=== PATIENT | male | born 1990 | race Two or more races ===

== ENCOUNTER 2021-04-03 06:15 | Inpatient (IN) | payer SELFPAY ==
[~2021-04-03] VITALS: Ht 177.8 cm; Wt 112.0 kg
[2021-04-03] VITALS (12 sets, daily range): BP systolic 78–134; BP diastolic 17–99
[2021-04-03] MEDS ORDERED: CEFTRIAXONE 1GM BAG (ER ONLY) 50 ML IV ONE ×2 (06:25→06:30)
[2021-04-03] MEDS ORDERED: AZITHROMYCIN 500 MG VIAL ONE (06:26)
[2021-04-03] MEDS ORDERED: DEXAMETHASONE SOD PHOSPHATE 10 MG/ML VIAL ONE (06:26)
[2021-04-03] MEDS ORDERED: IV NS 0.9% 500 ML IV ONE (06:30)
[2021-04-03] MEDS ORDERED: AZITHROMYCIN 500 MG in IV D5W 250 ML IV ONE (06:30)
[2021-04-03] MEDS ORDERED: DEXAMETHASONE SOD PHOSPHATE 10 MG/ML VIAL IV ONE (06:30)
--- NOTE | 2021-04-03 06:30 | NUR ---
PATIENT BIBEMS FROM HOME C/O ABDOMINAL PAIN AND BLOATING FOR THE PAST 2-3DAYS. PATIENT DENIES N/V. PATIENT O2 SAT LESS THAN 50%, O2 SAT 65% ON 15L/NRB PER EMS REPORT.
[2021-04-03 06:46] LABS: BASOPHILS % (AUTO) 0.1 % (0.0-2.0); HEMATOCRIT 39 % (39-51); HEMOGLOBIN 12.3 g/dL (13.5-17.5); LYMPHOCYTES # (AUTO) 4.3 K/uL (0.8-4.8); LYMPHOCYTES % (AUTO) 15.2 % (20.0-44.0); MEAN CORPUSCULAR HGB CONC 31 g/dl (31.0-36.0); MEAN CORPUSCULAR VOLUME 86 fL (80-96); MONOCYTES # (AUTO) 3.9 K/uL (0.1-1.30); MONOCYTES % (AUTO) 13.7 % (2.0-12.0); NEUTROPHILS # (AUTO) 20.3 K/uL (1.8-8.9); PLATELET COUNT (AUTO) 258 K/uL (150-450); RED BLOOD CELL COUNT(AUTO) 4.56 MIL/uL (4.5-6.0); WHITE BLOOD COUNT (AUTO) 28.6 K/uL (4.3-11.0)
--- NOTE | 2021-04-03 06:49 | NUR ---
PATIENT PLACED ON HIFLOW 40L, NRM, O2 STAT AT 90-91%
[2021-04-03 07:09] LABS: D-DIMER 16.74 mg/L(FEU (0.17-0.50)
[2021-04-03 07:16] LABS: CALCIUM, SERUM 8.2 mg/dL (8.5-10.1); CARBON DIOXIDE 14 mmol/L (21-32); CHLORIDE 96 mmol/L (98-107); CREATINE KINASE, TOTAL 159 U/L (39-308); CREATININE 2.2 mg/dL (0.6-1.3); FERRITIN 625 ng/mL (8-388); GLUCOSE 284 mg/dL (74-106); SODIUM SERUM 139 mmol/L (136-145); UREA NITROGEN, BLOOD 25 mg/dL (7-18)
[2021-04-03 07:22] LABS: POTASSIUM 2.5 mmol/L (3.5-5.1)
--- NOTE | 2021-04-03 07:22 | NUR ---
K 2.5
--- NOTE | 2021-04-03 07:23 | NUR ---
MOVE SHEET SUBMITTED, CALLED FOR ICU BED.
[2021-04-03 07:29] LABS: ALANINE AMINOTRANSFERASE 85 U/L (12-78); ALKALINE PHOSPHATASE 89 U/L (46-116); ASPARTATE AMINOTRANSFERASE 60 U/L (15-37); BILIRUBIN,TOTAL 0.4 mg/dL (0.2-1.0)
[2021-04-03] MEDS ORDERED: ENOXAPARIN SODIUM 100 MG/ML DISP.SYRIN SQ ONE ×2 (07:30→09:30)
[2021-04-03 07:41] LABS: C-REACTIVE PROTEIN 14.4 mg/dL (0.0-0.9)
--- NOTE | 2021-04-03 08:02 | NUR ---
THE PATIENT IS RECEIVED IN BED. ALERT AND ORIENETED X4. DENIES PAIN. THE PATIENT IS ON 15 L/MIN NON-REBREATHER MASK AND HIGH FLOW OXYGEN 40L/MIN 100%. THE SATURATION LEVEL IS AT 91%. WILL CONTINUE TO MONITOR THE PATIENT.
--- NOTE | 2021-04-03 08:03 | NUR ---
THE PATIENT IN PRONING POSITION. DENIES PAIN. WILL CONTINUE TO MONITOR THE PATIENT
--- NOTE | 2021-04-03 08:18 | NUR ---
GOT BED 262
[2021-04-03 08:53] LABS: ABG BASE EXCESS -6.5 mmol/L; ABG OXYGEN SATURATION 81.6 % (92.0-98.5); COHb 0.3 % (0.5-1.5); MetHb 0.3 % (0.0-1.5); O2Hb 81.1 % (94.0-97.0); SITE, ABG Right Radial; VENT MODE, BG HIGH FLOW 40L 100%
--- NOTE | 2021-04-03 09:31 | NUR ---
[facility] CALLED SALES PROMOTION OFFICER PAGED.
--- NOTE | 2021-04-03 10:10 | NUR ---
REPORT GIVEN TO NURSE ELISE FROM ICU.
[2021-04-03] MEDS ORDERED: ONDANSETRON 4 MG TAB.RAPDIS SL PRN (10:30)
[2021-04-03] MEDS ORDERED: ASPIRIN 300 MG/SUPP.RECT RC ONE (10:30)
[2021-04-03] MEDS ORDERED: ALBUTEROL SULFATE 8 GM HFA.AER.AD IH PRN (10:30)
[2021-04-03] MEDS ORDERED: ACETAMINOPHEN 650 MG/SUPP.RECT RC PRN (10:30)
[2021-04-03] MEDS ORDERED: ONDANSETRON HCL/PF 4 MG/2 ML VIAL IVP PRN (10:30)
[2021-04-03] MEDS ORDERED: IV NS 0.9% 1,000 ML BAG IV ONE (10:30)
--- NOTE | 2021-04-03 10:40 | NUR ---
SENIOR ACCOUNTANT CPA Telephone report taken from ER nurse Donna VILLATORO. Pt arrived to ICU via gurney. pt awake, alert and oriented x3, anxious, follows commands, able to move from gurney to bed independently. pt on 15L nonrebreather and High flow n/c 40 L with fio2 100%, spo2 89%. pt has sever sob with activity and during resting period. junior lung sounds diminished. bowel sounds present. pt continent of stool and urine. skin intact. bue and ble pedal pulses present. pt tachycardic hr 120s, tachypnic rr 30-40s and spo2 86- 91%, charge nurse zuri RN aware. RT at bedside. will continue to monitor.
--- NOTE | 2021-04-03 10:44 | NUR ---
MORIAH ORO MADE AWARE OF POTASSIUM 2.5. RECEIVED AN ORDER OF POTASSIUM CHLORIDE 40 MEQ IV. THE ORDER IS READ BACK, VERIFIED. NOTED AND CARRIED OUT.
--- NOTE | 2021-04-03 10:46 | NUR ---
THE PATIENT IS TRANSFERED TO ROOM 262 PER [facility] POLICY.
[2021-04-03] MEDS ORDERED: POTASSIUM CHLORIDE 10 MEQ/50 ML PREMIXED IVPB FOR PERIPHERAL LINE IV ONE (11:00)
--- NOTE | 2021-04-03 11:12 | NUR ---
MACHINE FILLER SHREDDER Dr Diallo at bedside assessing pt and updated on pt status. md aware that pt spo2 86-91% on high flow n/c 40L fio2 100% and nonrebreather 15L, per md pt improving from assessment down in ER. new orders pending for covid medication. no intubation at this time. will continue to monitor. charge nurse Kareen VILLATORO aware.
[2021-04-03] MEDS ORDERED: TOCILIZUMAB 400 MG in IV NS 0.9% 80 ML IV ONE (11:30)
[2021-04-03] MEDS ORDERED: IV D5/ 0.9% NACL 1,000 ML IV PRN (11:30)
[2021-04-03] MEDS: POTASSIUM CL. PREMIX PERIPHER. 50 ML IV SCH ×4 (11:34→15:17)
[2021-04-03] MEDS ORDERED: ASPIRIN 325 MG TABLET PO ONE (12:00)
[2021-04-03 12:05] LABS: BILIRUBIN,DIRECT 0.6 mg/dL (0.0-0.2)
--- NOTE | 2021-04-03 12:20 | NUR ---
IRVING Basurto SCRUM PRODUCT OWNER at bedside assessing pt and updated on pt status. associate director financial aid aware that pt has right chest tube placed in am, levophed off at 10 am and that pt has bp med in am that were held d/t pt on levophed and hypotension, associate director financial aid to review pt med list and make changes. no orders at this time. will continue to monitor. Addendum: 04/03/21 at 1308 by [facility] TEJA VILLATORO IRVING Basurto SCRUM PRODUCT OWNER at bedside assessing pt and updated on pt status. SCRUM PRODUCT OWNER aware that pt lactic 8.0. no new orders at this time. will continue to monitor. Addendum: 04/03/21 at 1347 by [facility] TEJA VILLATORO 1st note documented on wrong pt. disregard 1st note .
[2021-04-03 13:15] LABS: C-REACTIVE PROTEIN 20.6 mg/dL (0.0-0.9)
[2021-04-03 13:23] LABS: ABG OXYGEN SATURATION 89.2 % (92.0-98.5); ABG PCO2 23.2 mmHg (35.0-45.0); ABG PH 7.365 (7.350-7.450); ABG PO2 61.9 mmHg (75.0-100.0); AaDO2 627.9 mmHg; COHb 0.4 % (0.5-1.5); MetHb 0.2 % (0.0-1.5); O2Hb 88.7 % (94.0-97.0); SITE, ABG Right Radial; VENT MODE, BG HFNC 40LPM 100%+NRB
--- NOTE | 2021-04-03 13:44 | NUR ---
EXECUTIVE DIRECTOR Lab called for second time to draw labs ordered by pharmacy to dose medication. awaiting slab puller for blood draw. charge nurse aware.
[2021-04-03] MEDS ORDERED: TOCILIZUMAB 800 MG in IV NS 0.9% 80 ML IV ONE (14:00)
--- NOTE | 2021-04-03 14:30 | NUR ---
SWIMMING POOL MAINTENANCE Dr garcia aware that pt tachypnic and anxious. light dose of antianxiety med suggested to md to help calm pt down, not at this time per md for concerns that it will depress respiratory status. suggested intubation d/t pt excessive work of breathing, no intubation at this time and no new orders at this time per md. will continue to monitor. charge nurse Kareen VILLATORO aware.
[2021-04-03] MEDS ORDERED: TOCILIZUMAB 800 MG in IV NS 0.9% 60 ML IV ONE (14:37)
--- NOTE | 2021-04-03 16:05 | NUR ---
PLATFORM MILL SUPERVISOR Pt had BM x1 small liquid. pt bathed and cleaned. linen change done. skin check done, no wounds noted. pt desaturated when turning. pt anxious, and tachypnic, hob raised, coached pt on breathing slowly and through the nose, pt followed instructions, spo2 increased to 88%, RT at bedside . vitals stable. will continue to monitor.
--- NOTE | 2021-04-03 16:15 | NUR ---
CELL TUBER MACHINE Urine sample collected from pt, lab called for pickup, was instructed to place specimen in fridge for pickup. pickup pending.
[2021-04-03] MEDS ORDERED: DEXAMETHASONE SOD PHOSPHATE 10 MG/ML VIAL IV SCH (17:00)
[2021-04-03] MEDS ORDERED: DEXAMETHASONE SOD PHOSPHATE 6 MG in IV D5W 50 ML IV SCH (17:00)
[2021-04-03] MEDS ORDERED: INSULIN REGULAR, HUMAN 100 UNIT/ML 3 ML VIAL SQ PRN (19:00)
[2021-04-03] MEDS ORDERED: DEXTROSE 50%-WATER 50 ML DISP.SYRIN IV PRN (19:00)
--- NOTE | 2021-04-03 19:08 | NUR ---
HEALTH RECORDS TECHNOLOGY TEACHER bedside report given to [facility] nurse Márquez RN, pt awake, restless, anxious, tachypnic and tachycardic. pt on high flow 40 L fio2 100% and nonrebreather 15 L. all lines traced. all drips verified. safety measures in place.
--- NOTE | 2021-04-03 20:00 | NUR ---
school curriculum developer. before my assessment. pt coded.
[2021-04-03] MEDS ORDERED: EPINEPHRINE (1:10,000) SYRINGE 1 MG/10 ML DISP.SYRIN IVP ONE (20:39)
[2021-04-03] MEDS ORDERED: DEXTROSE 50%-WATER 50 ML DISP.SYRIN IV ONE (20:39)
[2021-04-03] MEDS ORDERED: SODIUM BICARBONATE SYR 50 MEQ/50 ML DISP.SYRIN IV ONE (20:39)
[2021-04-03] MEDS ORDERED: Magnesium 1 GM/2 ML VIAL IV ONE (20:39)
--- NOTE | 2021-04-03 22:59 | NUR ---
HEAD CAGER. RECEIVED THE PT FROM DAY SHIFT RN DAMON .AROUND 191, PT IS VERY TACHYPNEIC, AND TACHYCARDIA NOTED. PT IS ON OXYGEN HIGH FLOW AND NON REBREATHER. AROUND 1934I CHECKED THE PT MONITOR SHOWING MJ FOLLOWED BY PEA. ACTIVATED CODE BLUE, IV EPI GIVEN , ER CAME AND INTUBATED THE PT. SEE CODE BLUE SHEET. PRONOUNCED BY ER MD Hemanth MEAD. AT 2003. NOTIFIED [employer], SPOKE WITH HYUN, CASE #[id number]. PT IS NOT CANDIDATE FOR ORGAN DONATION.. NOTIFIED CORNER. SPOKE WITH LEVAR. PT IS NOT CORNER CASE. NOTIFIED FAMILY GIRL FRIEND , AND ADMITTING. POST MORTEM CARE GIVEN.AND SEND THE BODY TO [facility].
[2021-04-04] MEDS ORDERED: BLOOD SUGAR DIAGNOSTIC 1 EACH STRIP IN SCH
[2021-04-04] MEDS ORDERED: AZITHROMYCIN 250 MG in IV D5W 250 ML IV SCH (06:00)
[2021-04-04] MEDS ORDERED: CEFTRIAXONE 1 G in IV D5W 50 ML IV SCH (07:00)
[2021-04-04] MEDS ORDERED: APIXABAN 2.5 MG TABLET PO SCH (08:00)
[2021-04-04] MEDS ORDERED: ASPIRIN 81 MG TAB.CHEW PO SCH (09:00)
[2021-04-04] MEDS ORDERED: ENOXAPARIN SODIUM 40 MG/0.4 ML DISP.SYRIN SQ SCH ×2 (09:00)
[2021-04-04 13:33] LABS: BILIRUBIN,URINE NEGATIVE (NEGATIVE); COLOR,URINE YELLOW (YELLOW); LEUKOCYTE ESTERASE ,URINE NEGATIVE (NEGATIVE); NITRITE, URINE NEGATIVE (NEGATIVE); PROTEIN,URINE 30 mg/dl (NEGATIVE); UGLUCOSE NEGATIVE (NEGATIVE)
[2021-04-04 13:39] LABS: BACTERIA,URINE Rare /HPF (None Seen); SQUAMOUS EPITHELIAL CELL,UR Few /HPF (None Seen); WBC,URINE 0-2 /HPF (0-3)
== END 2021-04-03 20:04 | DRG 177 ==
LOC: ER 06:21 → ICU 10:50
PROVIDERS: ADMIT Registered Nurse; ATTEND Registered Nurse
PROC: XW033H5 Introduction of Tocilizumab into Peripheral Vein, Percutaneous Approach, New Technology Group 5 (ICD-10-PCS; principal; 2021-04-03)
PROC: 0BH17EZ Insertion of Endotracheal Airway into Trachea, Via Natural or Artificial Opening (ICD-10-PCS; 2021-04-03)
PROC: 5A2204Z Restoration of Cardiac Rhythm, Single (ICD-10-PCS; 2021-04-03)
DX: U07.1 COVID-19 (principal); J12.82 Pneumonia due to coronavirus disease 2019; J96.01 Acute respiratory failure with hypoxia; I21.A1 Myocardial infarction type 2; N17.9 Acute kidney failure, unspecified; E87.2 Acidosis; E66.01 Morbid (severe) obesity due to excess calories; Z68.35 Body mass index [BMI] 35.0-35.9, adult; E87.6 Hypokalemia; R74.01 Elevation of levels of liver transaminase levels
CPT/HCPCS: 36415; 36600; 71045-TC; 80053-TC; 81001; 82248-TC; 82550-TC; 82728-TC; 82803-TC; 83605-TC; 83615-TC; 83880; 84484-TC; 85025-TC; 85378-TC; 85385-TC; 85730-TC; 86140-TC; 87040-TC; 87081-TC; 87086-TC; 92950-TC; A6403; C9803; G0378; J0171; J0456; J0696; J1100; J1650; J1815; J3262; J3475; J3480; J3490; J7030; J7042; J7060; Q0162; U0003